=== PATIENT | male | born 1955 | race Caucasian/White ===

== ENCOUNTER 2019-10-01 17:15 | Emergency (ER) | payer OTHER, MEDICARE ==
--- NOTE | 2019-10-01 18:51 | RAD REPORT ---
EXAM DESCRIPTION: RAD - Ankle Left 3 View -10/01/2019 6:27 pm CLINICAL HISTORY: Left ankle pain status post injury FINDINGS: Minimally displaced fracture base of the fifth metatarsal. No dislocation
--- NOTE | 2019-10-01 18:53 | RAD REPORT ---
EXAM DESCRIPTION: RAD - Foot Left 3 View - 10/01/2019 6:27 pm CLINICAL HISTORY: Left Foot pain FINDINGS: Minimally displaced fracture base of the fifth metatarsal. No dislocation
[2019-10-01 19:28] VITALS: BP 132/99; TEMP 97.2; O2SAT 96
--- NOTE | 2019-10-02 19:13 | EDPHYS ---
Physician Documentation [facility] Name: Daniele Krishnan Age: 64 yrs Sex: Male : 1955 Arrival Date: 10/01/2019 Time: 17:19 Bed 25 Private MD: Susi Ramírez ED Physician Alpesh Reyes HPI: 09/30 17:57 This 64 yrs old Male presents to ER via Wheelchair with complaints of Ankle kdr Injury. 17:57 The patient presents with decreased range of motion, an injury, pain, that is acute, kdr swelling, tenderness. The complaints affect the left ankle. Onset: The symptoms/episode began/occurred suddenly, yesterday. Context: The problem was sustained at home, resulted from a mis-step by the patient, The mechanism of injury involved eversion of the affected ankle. The patient is unable to bear weight. The patient is not able to ambulate. Associated signs and symptoms: The patient has no apparent associated signs or symptoms. Modifying factors: The symptoms are alleviated by elevation of extremity, the symptoms are aggravated by weight bearing, movement. Severity of symptoms: At their worst the symptoms were mild, moderate, just prior to arrival, in the emergency department the symptoms are unchanged. The patient has not experienced similar symptoms in the past. The patient has not recently seen a physician. Historical: - Allergies: 17:51 No Known Allergies; ca1 - PMHx: 17:51 Hypertension; High Cholesterol; ca1 - PSHx: 17:51 testicular removal L; ca1 - Immunization history:: Adult Immunizations up to date. - Social history:: Smoking status: Patient denies any tobacco usage or history of. ROS: 17:57 Constitutional: Negative for fever, chills, and weight loss, Eyes: Negative for injury, kdr pain, redness, and discharge, Neck: Negative for injury, pain, and swelling, Cardiovascular: Negative for chest pain, palpitations, and edema, Respiratory: Negative for shortness of breath, cough, wheezing, and pleuritic chest pain, Abdomen/GI: Negative for abdominal pain, nausea, vomiting, diarrhea, and constipation. 17:57 MS/extremity: Positive for injury or acute deformity, decreased range of motion, pain, swelling, tenderness. Exam: 17:57 Constitutional: This is a well developed, well nourished patient who is awake, alert, kdr and in no acute distress. Head/Face: Normocephalic, atraumatic. Vital Signs: 17:48 BP 132 / 99; Pulse 72; Resp 16 S; Temp 97.2(TE); Pulse Ox 96% on R/A; Weight 77.11 kg ca1 (R); Height 5 ft. 8 in. (172.72 cm) (R); 17:48 Body Mass Index 25.85 (77.11 kg, 172.72 cm) ca1 MDM: 18:52 Patient medically screened. kdr 18:54 Data reviewed: vital signs, nurses notes, radiologic studies. Counseling: I had a kdr detailed discussion with the patient and/or guardian regarding: the historical points, exam findings, and any diagnostic results supporting the discharge/admit diagnosis, radiology results, the need for outpatient follow up. 09/30 17:52 Order name: XRAY Ankle LEFT 3 view ca1 09/30 17:52 Order name: XRAY Foot LEFT 3 View ca1 09/30 18:50 Order name: Post-op Orthopedic Shoe; Complete Time: 19:31 kdr Administered Medications: No medications were administered Disposition: 10/01/19 18:52 Discharged to Home. Impression: Nondisplaced fracture of fifth metatarsal bone, left foot. - Condition is Stable. - Discharge Instructions: Metatarsal Fracture. - Prescriptions for Tylenol- Codeine #3 300-30 mg Oral Tablet - take 2 tablets by ORAL route every 6 hours As needed; 15 tablet. - Medication Reconciliation Form, Thank You Letter, Prescription Opioid Use form. - Follow up: Susi Ramírez MD; When: 2 - 3 days; Reason: If symptoms return, Further diagnostic work-up, Recheck today's complaints, Continuance of care, Re-evaluation by your physician. - Problem is new. - Symptoms have improved. Signatures: Dispatcher [employer] EDMS Carlos Salinas RN RN Alpesh Reyes MD MD [facility] Kimmy Alberto RN RN ca1 Corrections: (The following items were deleted from the chart) 18:57 18:50 Crutches ordered. kdr iw 18:58 18:50 Tian wrap-joint ordered. kdr iw 19:23 18:52 10/01/2019 18:52 Discharged to Home. Impression: Nondisplaced fracture of fifth sg metatarsal bone, left foot. Condition is Stable. Forms are Medication Reconciliation Form, Thank You Letter, Antibiotic Education, Prescription Opioid Use. Follow up: Susi Ramírez; When: 2 - 3 days; Reason: If symptoms return, Further diagnostic work-up, Recheck today's complaints, Continuance of care, Re-evaluation by your physician. Problem is new. Symptoms have improved. kdr
--- NOTE | 2019-10-02 19:13 | ER ---
Nurse's Notes [facility] Name: Daniele Krishnan Age: 64 yrs Sex: Male : 1955 Arrival Date: 10/01/2019 Time: 17:19 Bed 25 Private MD: Susi Ramírez Diagnosis: Nondisplaced fracture of fifth metatarsal bone, left foot Presentation: 09/30 17:48 Chief complaint: Patient states: Rolled and twisted L ankle yesterday. Reports swelling ca1 and pain on L ankle. Reports unable to put weight on L ankle. Coronavirus screen: Proceed with normal triage. Patient denies a cough. Patient denies shortness of breath or difficulty breathing. Patient denies measured and/or subjective temperature greater than 100.4F prior to today's visit. Patient denies travel on a cruise ship or to a country the [facility] currently lists as an affected area. Patient denies contact with known and/or suspected case of COVID-19. Ebola Screen: Patient negative for fever greater than or equal to 101.5 degrees Fahrenheit, and additional compatible Ebola Virus Disease symptoms Patient denies exposure to infectious person. Patient denies travel to an Ebola-affected area in the 21 days before illness onset. No symptoms or risks identified at this time. Initial Sepsis Screen: Does the patient meet any 2 criteria? No. Patient's initial sepsis screen is negative. Does the patient have a suspected source of infection? No. Patient's initial sepsis screen is negative. Risk Assessment: Do you want to hurt yourself or someone else? Patient reports no desire to harm self or others. Onset of symptoms was October 01, 2019. 17:48 Method Of Arrival: Wheelchair ca1 17:48 Acuity: GUILLERMINA 4 ca1 Historical: - Allergies: 17:51 No Known Allergies; ca1 - PMHx: 17:51 Hypertension; High Cholesterol; ca1 - PSHx: 17:51 testicular removal L; ca1 - Immunization history:: Adult Immunizations up to date. - Social history:: Smoking status: Patient denies any tobacco usage or history of. Screenin:14 Abuse screen: Denies threats or abuse. Denies injuries from another. Nutritional iw screening: No deficits noted. Tuberculosis screening: No symptoms or risk factors identified. Fall Risk None identified. Assessment: 18:13 General: Appears in no apparent distress. comfortable, Behavior is calm, cooperative. iw Pain: Complains of pain in left lateral ankle and lateral aspect of left foot. Neuro: Level of Consciousness is awake, alert, obeys commands, Oriented to person, place, time, situation. Cardiovascular: Patient's skin is warm and dry. Respiratory: Respiratory effort is even, unlabored, Respiratory pattern is regular, symmetrical. Derm: Skin is intact, is healthy with good turgor. Musculoskeletal: Range of motion: limited in left ankle. Vital Signs: 17:48 BP 132 / 99; Pulse 72; Resp 16 S; Temp 97.2(TE); Pulse Ox 96% on R/A; Weight 77.11 kg ca1 (R); Height 5 ft. 8 in. (172.72 cm) (R); 17:48 Body Mass Index 25.85 (77.11 kg, 172.72 cm) ca1 ED Course: 17:19 Patient arrived in ED. as 17:20 Susi Ramírez MD is Private Physician. as 17:50 Triage completed. ca1 17:51 Arm band placed on right wrist. ca1 17:53 Alpesh Reyes MD is Attending Physician. kdr 18:13 Meme Lim, CARTER is Primary Nurse. iw 18:14 No provider procedures requiring assistance completed. Patient did not have IV access iw during this emergency room visit. 18:27 XRAY Ankle LEFT 3 view In Process Unspecified. EDMS 18:27 XRAY Foot LEFT 3 View In Process Unspecified. EDMS 18:51 Susi Ramírez MD is Referral Physician. kdr 19:20 Patient has correct armband on for positive identification. sg 19:30 Crutch training done. Ortho shoe applied to left foot. pt has his own crutches from home, demonstrated safe usage prior to discharge to home. Administered Medications: No medications were administered Outcome: 18:52 Discharge ordered by MD. kdr 19:20 Discharged to home ambulatory, with crutches, with family. sg 19:20 Condition: good 19:20 Discharge instructions given to patient, family, phlebotomy supervisor, Instructed on discharge instructions, follow up and referral plans. medication usage, safety practices, Demonstrated understanding of instructions, follow-up care, medications, crutch walking, Prescriptions given X 1. 19:23 Patient left the ED. sg Signatures: Dispatcher [employer] EDMS Eleno Salinasen, CARTER RN sg Alpesh Reyes MD MD kdr Martinez, Amelia as Williams, Irene, RN RN iw Kimmy Alberto RN RN ca1
== END 2019-10-01 19:23 | disposition home or self-care (01) ==
LOC: ER 17:15
DX: S92.355A Nondisplaced fracture of fifth metatarsal bone, left foot, initial encounter for closed fracture (principal); X58.XXXA Exposure to other specified factors, initial encounter; Y93.9 Activity, unspecified; Y92.009 Unspecified place in unspecified non-institutional (private) residence as the place of occurrence of the external cause; I10 Essential (primary) hypertension
CPT/HCPCS: 99283

== ENCOUNTER 2019-11-23 23:39 | Emergency (ER) | payer OTHER, MEDICARE ==
[2019-11-24 00:32] LABS: Absolute Lymphocytes (CBC) 3.4 K/uL (0.7-4.9); Basophils % 0.4 % (0-1.3); Hematocrit 42.9 % (39.6-49.0); Lymphocytes % 40.4 % (15.3-44.8); MPV 8.4 fL (7.6-11.3); RBC Red Blood Cell Count 5.13 M/uL (4.33-5.43)
[2019-11-24 00:32] LABS: Urine Blood NEGATIVE (NEG); Urine Glucose NEGATIVE (NEG); Urine Protein NEGATIVE (NEG); Urine pH 6.5 (5.0-7.0)
[2019-11-24 00:54] LABS: Albumin 4.3 g/dL (3.4-5.0); Bilirubin Direct 0.2 mg/dL (0-0.2); Bilirubin Total 0.5 mg/dL (0.2-1.0); Potassium 3.2 mmol/L (3.5-5.1); Protein, Total 7.7 g/dL (6.4-8.2)
[2019-11-24] MEDS ORDERED: NA CHLORIDE 0.9% 1,000 ML ONE (01:32)
--- NOTE | 2019-11-24 02:47 | ER ---
Nurse's Notes [facility] Name: Daniele Krishnan Age: 64 yrs Sex: Male : 1955 Arrival Date: 11/23/2019 Time: 23:41 Bed 8 Private MD: Diagnosis: Constipation Presentation: 11/23 00:02 Chief complaint: Patient states: Camila had some stomach bloating for about week, reports sg nausea that comes and goes, denies Diarrhea/fever/chills at this time, denies pain, reports the sensation of feeling like abdomen is swollen and bloated. Coronavirus screen: Patient denies a cough. Patient denies shortness of breath or difficulty breathing. Patient denies measured and/or subjective temperature greater than 100.4F prior to today's visit. Patient denies travel on a cruise ship or to a country the [facility] currently lists as an affected area. Patient denies contact with known and/or suspected case of COVID-19. Ebola Screen: Patient negative for fever greater than or equal to 101.5 degrees Fahrenheit, and additional compatible Ebola Virus Disease symptoms Patient denies exposure to infectious person. Patient denies travel to an Ebola-affected area in the 21 days before illness onset. No symptoms or risks identified at this time. Initial Sepsis Screen: Does the patient meet any 2 criteria? No. Patient's initial sepsis screen is negative. Does the patient have a suspected source of infection? No. Patient's initial sepsis screen is negative. Risk Assessment: Do you want to hurt yourself or someone else? Patient reports no desire to harm self or others. Onset of symptoms was November 17, 2019. Care prior to arrival: None. Transition of care: patient was not received from another setting of care. 00:02 Method Of Arrival: Ambulatory sg 00:02 Acuity: GUILLERMINA 4 sg Historical: - Allergies: 00:06 No Known Allergies; jb4 - Home Meds: 00:06 Diovan Oral [Active]; Crestor oral oral [Active]; jb4 - PMHx: 00:06 High Cholesterol; Hypertension; jb4 - PSHx: 00:06 testicular removal L; jb4 - Immunization history:: Adult Immunizations up to date. - Social history:: Smoking status: Patient denies any tobacco usage or history of. Patient uses alcohol, occasionally. Patient/guardian denies using street drugs. Screenin:00 Abuse screen: Denies threats or abuse. Denies injuries from another. Nutritional rr5 screening: No deficits noted. Tuberculosis screening: No symptoms or risk factors identified. Fall Risk IV access (20 points). Ambulatory Aid- Crutches/Cane/Walker (15 pts). Total Hand Fall Scale indicates. Assessment: 00:06 General: Appears in no apparent distress. comfortable, Behavior is calm, cooperative, jb4 appropriate for age. Pain: Complains of pain in suprapubic area Pain does not radiate. Pain currently is 3 out of 10 on a pain scale. Neuro: Level of Consciousness is awake, alert, obeys commands, Oriented to person, place, time, situation. Cardiovascular: Patient's skin is warm and dry. Respiratory: Airway is patent Respiratory effort is even, unlabored, Respiratory pattern is regular, symmetrical. GI: Abdomen is flat, Reports lower abdominal pain, constipation, nausea. : No signs and/or symptoms were reported regarding the genitourinary system. EENT: No signs and/or symptoms were reported regarding the EENT system. Derm: Skin is intact, Skin is pink, warm \T\ dry. Musculoskeletal: Circulation, motion, and sensation intact. Range of motion: intact in all extremities. 01:00 Reassessment: Patient appears in no apparent distress at this time. Patient and/or jb4 family updated on plan of care and expected duration. Pain level reassessed. Patient is alert, oriented x 3, equal unlabored respirations, skin warm/dry/pink. 02:00 Reassessment: Patient appears in no apparent distress at this time. Patient and/or jb4 family updated on plan of care and expected duration. Pain level reassessed. Patient is alert, oriented x 3, equal unlabored respirations, skin warm/dry/pink. 03:02 Reassessment: Patient appears in no apparent distress at this time. Patient is alert, rr5 oriented x 3, equal unlabored respirations, skin warm/dry/pink. discharge instruction given and explained without complaints made. Vital Signs: 11/22 23:54 BP 135 / 95; Pulse 60; Resp 16; Temp 97.5(O); Pulse Ox 100% on R/A; Weight 74.84 kg; ar5 Height 5 ft. 8 in. (172.72 cm); Pain 3/10; 11/23 02:00 BP 129 / 71; Pulse 57; Resp 16; Pulse Ox 100% on R/A; Pain 3/10; jb4 03:01 BP 127 / 75; Pulse 60; Resp 16; Temp 97.5; Pulse Ox 99% on R/A; rr5 11/22 23:54 Body Mass Index 25.09 (74.84 kg, 172.72 cm) ar5 ED Course: 11/22 23:41 Patient arrived in ED. cf2 23:49 Favio Morley MD is Attending Physician. mh7 11/23 00:00 Nahun Calloway, RN is Primary Nurse. jb4 00:04 Triage completed. sg 00:04 Arm band placed on. sg 00:05 Patient has correct armband on for positive identification. Bed in low position. Call rr5 light in reach. Pulse ox on. NIBP on. 00:22 Inserted saline lock: 20 gauge in left antecubital area, using aseptic technique. Blood ar5 collected. 00:28 Urine collected: clean catch specimen, clear. ar5 01:41 CT Abd/Pelvis - IV Contrast Only In Process Unspecified. EDMS 02:50 An Mendoza MD is Referral Physician. 7 03:02 No provider procedures requiring assistance completed. IV discontinued, intact, rr5 bleeding controlled, No redness/swelling at site. Pressure dressing applied. Administered Medications: 01:45 Drug: NS 0.9% 1000 ml Route: IV; Rate: 1000 ml; Site: right antecubital; rr5 02:30 Follow up: Response: No adverse reaction; IV Status: Completed infusion; IV Intake: rr5 1000ml Intake: 02:30 IV: 1000ml; Total: 1000ml. rr5 Outcome: 02:46 Discharge ordered by . 7 03:02 Discharged to home ambulatory, with cane rr5 03:02 Condition: stable 03:02 Discharge instructions given to patient, Instructed on discharge instructions, follow up and referral plans. medication usage, Demonstrated understanding of instructions, follow-up care, medications, Prescriptions given X 3. 03:03 Patient left the ED. rr5 Signatures: Dispatcher [employer] EDWA Carlos Salinas RN RN Nahun Calloway RN RN jbHiginio Jones RN RN rr5 Lashon Dugan ar5 Nain Beth cf2 Favio Morley MD MD 7 Corrections: (The following items were deleted from the chart) 00:29 00:28 Inserted saline lock: 20 gauge in left antecubital area, using aseptic technique. ar5 Blood collected. ar5
--- NOTE | 2019-11-24 02:47 | EDPHYS ---
Physician Documentation [facility] Name: Daniele Krishnan Age: 64 yrs Sex: Male : 1955 Arrival Date: 11/23/2019 Time: 23:41 Bed 8 Private MD: ED Physician Favio Morley HPI: 11/23 00:03 This 64 yrs old Male presents to ER via Unassigned with complaints of mh7 Constipation. 00:05 The patient presents with Constipation. Onset: The symptoms/episode began/occurred 5 mh7 day(s) ago. The symptoms do not radiate. Associated signs and symptoms: Pertinent positives: dysuria, nausea, Pertinent negatives: anorexia, blood in stools, chest pain. 00:06 Associated signs and symptoms: Pertinent positives: constipation, Pertinent negatives: mh7 diarrhea, fever, headache, hematuria, palpitations, shortness of breath, testicular pain, vomiting, vomiting blood. The symptoms are described as constant. Modifying factors: The symptoms are alleviated by nothing, the symptoms are aggravated by nothing. Severity of pain: At its worst the pain was mild yesterday, in the emergency department the pain has improved moderately. Historical: - Allergies: 00:06 No Known Allergies; jb4 - Home Meds: 00:06 Diovan Oral [Active]; Crestor oral oral [Active]; jb4 - PMHx: 00:06 High Cholesterol; Hypertension; jb4 - PSHx: 00:06 testicular removal L; jb4 - Immunization history:: Adult Immunizations up to date. - Social history:: Smoking status: Patient denies any tobacco usage or history of. Patient uses alcohol, occasionally. Patient/guardian denies using street drugs. ROS: 00:06 Constitutional: Negative for fever, chills, and weight loss, Eyes: Negative for injury, mh7 pain, redness, and discharge, ENT: Negative for injury, pain, and discharge, Neck: Negative for injury, pain, and swelling, Cardiovascular: Negative for chest pain, palpitations, and edema, Respiratory: Negative for shortness of breath, cough, wheezing, and pleuritic chest pain, Back: Negative for injury and pain, : Negative for injury, bleeding, discharge, and swelling, MS/Extremity: Negative for injury and deformity, Skin: Negative for injury, rash, and discoloration, Neuro: Negative for headache, weakness, numbness, tingling, and seizure, Psych: Negative for depression, anxiety, suicide ideation, homicidal ideation, and hallucinations, Allergy/Immunology: Negative for hives, rash, and allergies, Endocrine: Negative for neck swelling, polydipsia, polyuria, polyphagia, and marked weight changes, Hematologic/Lymphatic: Negative for swollen nodes, abnormal bleeding, and unusual bruising. Exam: 00:06 Constitutional: This is a well developed, well nourished patient who is awake, alert, mh7 and in no acute distress. Head/Face: Normocephalic, atraumatic. Eyes: Pupils equal round and reactive to light, extra-ocular motions intact. Lids and lashes normal. Conjunctiva and sclera are non-icteric and not injected. Cornea within normal limits. Periorbital areas with no swelling, redness, or edema. Neck: Trachea midline, no thyromegaly or masses palpated, and no cervical lymphadenopathy. Supple, full range of motion without nuchal rigidity, or vertebral point tenderness. No Meningismus. Chest/axilla: Normal chest wall appearance and motion. Nontender with no deformity. No lesions are appreciated. Cardiovascular: Regular rate and rhythm with a normal S1 and S2. No gallops, murmurs, or rubs. Normal PMI, no JVD. No pulse deficits. Respiratory: Lungs have equal breath sounds bilaterally, clear to auscultation and percussion. No rales, rhonchi or wheezes noted. No increased work of breathing, no retractions or nasal flaring. Abdomen/GI: Soft, non-tender, with normal bowel sounds. No distension or tympany. No guarding or rebound. No evidence of tenderness throughout. Back: No spinal tenderness. No costovertebral tenderness. Full range of motion. Skin: Warm, dry with normal turgor. Normal color with no rashes, no lesions, and no evidence of cellulitis. MS/ Extremity: Pulses equal, no cyanosis. Neurovascular intact. Full, normal range of motion. Neuro: Awake and alert, GCS 15, oriented to person, place, time, and situation. Cranial nerves II-XII grossly intact. Motor strength 5/5 in all extremities. Sensory grossly intact. Cerebellar exam normal. Normal gait. Psych: Awake, alert, with orientation to person, place and time. Behavior, mood, and affect are within normal limits. Vital Signs: 11/22 23:54 BP 135 / 95; Pulse 60; Resp 16; Temp 97.5(O); Pulse Ox 100% on R/A; Weight 74.84 kg; ar5 Height 5 ft. 8 in. (172.72 cm); Pain 3/10; 11/23 02:00 BP 129 / 71; Pulse 57; Resp 16; Pulse Ox 100% on R/A; Pain 3/10; jb4 03:01 BP 127 / 75; Pulse 60; Resp 16; Temp 97.5; Pulse Ox 99% on R/A; rr5 11/22 23:54 Body Mass Index 25.09 (74.84 kg, 172.72 cm) ar5 MDM: 00:01 Patient medically screened. 7 02:43 Differential diagnosis: bowel obstruction, diverticulitis, Peptic Ulcer Disease, mh7 Ureterolithiasis, Constipation. Data reviewed: vital signs, nurses notes, lab test result(s), CBC, electrolytes, urinalysis, radiologic studies, CT scan. Data interpreted: Pulse oximetry: on room air is 100 %. Interpretation: normal. Counseling: I had a detailed discussion with the patient and/or guardian regarding: the historical points, exam findings, and any diagnostic results supporting the discharge/admit diagnosis, lab results, radiology results, the need for outpatient follow up, to return to the emergency department if symptoms worsen or persist or if there are any questions or concerns that arise at home. Response to treatment: the patient's symptoms have mildly improved after treatment. 11/23 00:02 Order name: Basic Metabolic Panel; Complete Time: 00:56 [facility] 11/23 00:02 Order name: CBC with Diff; Complete Time: 00:56 [facility] 11/23 00:02 Order name: Hepatic Function; Complete Time: 00:56 11/23 00:02 Order name: Lipase; Complete Time: 00:56 11/23 00:28 Order name: Urine Dipstick--Ancillary (enter results); Complete Time: 00:56 tt3 11/23 00:57 Order name: CT Abd/Pelvis - IV Contrast Only [facility] 11/23 00:02 Order name: IV Saline Lock; Complete Time: 00:28 11/23 00:02 Order name: Labs collected and sent; Complete Time: 00:28 [facility] 11/23 00:02 Order name: Urine Dipstick-Ancillary (obtain specimen); Complete Time: 00:28 7 Administered Medications: 01:45 Drug: NS 0.9% 1000 ml Route: IV; Rate: 1000 ml; Site: right antecubital; rr5 02:30 Follow up: Response: No adverse reaction; IV Status: Completed infusion; IV Intake: rr5 1000ml Disposition: 11/24/19 02:46 Discharged to Home. Impression: Constipation. - Condition is Stable. - Discharge Instructions: Dysuria, Constipation, Adult, [id number]. - Prescriptions for Dulcolax (bisacodyl) 5 mg Oral tablet,delayed release (DR/EC) - take 1 tablet by ORAL route once daily As needed; 7 tablet. Pyridium 200 mg Oral Tablet - take 1 tablet by ORAL route every 8 hours for 2 days; 6 tablet. Lactulose 10 gram/15 mL Oral Solution - take 30 milliliters by ORAL route once daily; 150 milliliter. - Medication Reconciliation Form, Thank You Letter, Antibiotic Education, Prescription Opioid Use form. - Follow up: Private Physician; When: 1 - 2 days; Reason: Worsening of condition, Recheck today's complaints, Continuance of care, Re-evaluation by your physician. Follow up: An Mendoza MD; When: 1 - 2 days; Reason: Worsening of condition, Recheck today's complaints. - Problem is new. - Symptoms have improved. Signatures: Dispatcher [employer] EDDE Nahun Calloway RN RN jb4 Higinio Rangel RN RN rr5 Favio Morley MD MD mh7 Corrections: (The following items were deleted from the chart) 02:50 02:46 11/24/2019 02:46 Discharged to Home. Impression: Constipation. Condition is mh7 Stable. Forms are Medication Reconciliation Form, Thank You Letter, Antibiotic Education, Prescription Opioid Use. Follow up: Private Physician; When: 1 - 2 days; Reason: Worsening of condition, Recheck today's complaints, Continuance of care, Re-evaluation by your physician. Problem is new. Symptoms have improved. mh7 03:03 02:50 11/24/2019 02:46 Discharged to Home. Impression: Constipation. Condition is rr5 Stable. Discharge Instructions: Dysuria, Constipation, Adult, [id number]. Prescriptions for Dulcolax (bisacodyl) 5 mg Oral tablet,delayed release (DR/EC) - take 1 tablet by ORAL route once daily As needed; 7 tablet, Pyridium 200 mg Oral Tablet - take 1 tablet by ORAL route every 8 hours for 2 days; 6 tablet, Lactulose 10 gram/15 mL Oral Solution - take 30 milliliters by ORAL route once daily; 150 milliliter. and Forms are Medication Reconciliation Form, Thank You Letter, Antibiotic Education, Prescription Opioid Use. Follow up: Private Physician; When: 1 - 2 days; Reason: Worsening of condition, Recheck today's complaints, Continuance of care, Re-evaluation by your physician. Follow up: An Mendoza; When: 1 - 2 days; Reason: Worsening of condition, Recheck today's complaints. Problem is new. Symptoms have improved. mh7
[2019-11-24 03:11] VITALS: TEMP 97.5
[2019-11-24 03:13] VITALS: BP 127/75; O2SAT 99
--- NOTE | 2019-11-24 17:23 | RAD REPORT ---
EXAM DESCRIPTION: CT - Abdomen Pelvis W Contrast - 11/24/2019 7:03 am CLINICAL HISTORY: CONSTIPATION COMPARISON: None Available. TECHNIQUE: CT of the abdomen and pelvis performed following IV administration of iodinated contras t.. FINDINGS: Lung Bases: The visualized lung bases are clear. Bones: Degenerative endplate spondylosis. Abdomen: Liver: The liver has normal size and density. No intrahepatic biliary dilatation. Multiple small righ t hepatic cyst. Gallbladder: No calcified gallstones. Spleen, Pancreas, and Adrenal Glands: The spleen, pancreas, and adrenal glands are unremarkable. Kidneys: No hydronephrosis or obstructing calculus. Large benign right renal cyst measuring 11.0 cm. Vasculature: Aortoiliac atherosclerosis. IVC is unremarkable. 2.9 cm infrarenal abdominal aorta aneur ysm. Mild dilation of the common iliac arteries. The portal vein is patent. The proximal visceral a nd renal arteries are patent. Stomach: The stomach and duodenum have normal course. Other: No free intraperitoneal air. No free fluid or lymphadenopathy. Pelvis: Bladder: Urinary bladder is unremarkable. Bowel: No dilated loops of large or small bowel. Moderate amount of stool predominantly in the asce nding and transverse colon. Appendix: Normal appendix. Pelvis: Enlarged prostate. Small left fat-containing inguinal hernia. IMPRESSION: 1. No acute inflammatory or obstructive process identified. 2. Enlarged prostate. 3. 11.0 cm benign right renal cyst. 4. 2.9 cm abdominal aortic aneurysm. Recommend follow-up every 5 years. Reference: J Am Simona Radiol 2013;10:789-794. This exam was performed according to our departmental dose-optimization program, which includes autom ated exposure control, adjustment of the mA and/or kV according to patient size and/or use of iterati ve reconstruction technique. Electronically signed by: Harjit Metz 11/24/2019 1:55 AM CDT Due to temporary technical issues with the PACS/Fluency reporting system, reports are being signed by the in house radiologist without review as a courtesy to ensure prompt reporting. The interpreting r adiologist is fully responsible for the content of the report.
== END 2019-11-24 03:03 | disposition home or self-care (01) ==
LOC: ER 23:39
DX: K59.00 Constipation, unspecified (principal); I10 Essential (primary) hypertension; E78.00 Pure hypercholesterolemia, unspecified
CPT/HCPCS: 85025; 80048; 36415; 80076; 81003; 83690; 74177; 96360; 99284; Q9967; J7030